=== PATIENT | male | born 1935 | race Caucasian/White ===

== ENCOUNTER 2023-04-23 08:33 | Emergency (ER) | payer MEDICARE, SELFPAY ==
[2023-04-23 08:40] VITALS: BP 177/72; PULSE 58; RESP 12; TEMP 36.3; O2SAT 97; BMI 25.0
--- NOTE | 2023-04-23 08:57 | ED_ITS ---
HPI - Syncope General Time Seen by Provider: 08:57 Date Seen: 04/23/23 Chief Complaint: Syncope/Fainted Stated Complaint: fall Time Seen by Provider: 04/23/23 08:48 Source: patient and family Mode of arrival: ambulatory Limitations: no limitations History of Present Illness HPI narrative: 88-year-old male with history of high blood pressure presents today for syncopal episode at [facility]. Patient stood up, by report looked pale and became unsteady, was eased down to sitting position. Did vomit but no abnormal movements and no confusion afterward. Patient denies chest pain or palpitations prior to this episode. Says he has been in his usual state of health. Says he has not eaten anything today which is not usual for him. Recently stopped lisinopril due to hypokalemia by his report, no other recent medication changes. Related Data Home Medications Medication Instructions Recorded Confirmed metoprolol tartrate 25 mg tablet 37.5 mg PO BID blood pressure 04/23/23 04/23/23 Allergies Allergy/AdvReac Type Severity Reaction Status Date / Time No Known Drug Allergies Allergy Verified 04/23/23 08:39 PFSH PFSH Social History Smoking Status: Never smoker How often do you have a drink containing alcohol: never AUDIT-C Alcohol total score: 0 Non-prescribed substance use: denies use Exam Narrative: Exam Narrative: General: Well-developed and well-nourished, no acute distress Head: Atraumatic and normocephalic Eyes: Pupils are equal reactive, extraocular motions intact, conjunctiva clear ENT: External nose and ears are normal, posterior pharynx without erythema or exudate Neck: No midline cervical tenderness, full spontaneous range of motion the neck, trachea midline, no adenopathy Heart: Regular rate and rhythm no murmurs or thrills Lungs: Clear to auscultation bilaterally without wheezes or crackles Abdomen: Soft, nontender, nondistended with active bowel sounds Musculoskeletal: No tenderness, deformity, or edema Neurologic: Awake, alert, and oriented x3, no gross focal neurologic deficits, cranial nerves intact as tested Psych: Mood and affect are appropriate Skin: No rashes Const: Vital Signs, click to edit/add: Vital Signs - 24 hr 04/23/23 08:40 04/23/23 09:32 Temperature 97.4 F L Pulse Rate 70 Pulse Rate [Pulse Oximeter] 58 L Respiratory Rate 12 14 Blood Pressure 147/72 H Blood Pressure [Ri ght Upper Arm] 177/72 H Pulse Oximetry 97 Oxygen Delivery Me thod Room Air Course Course ED Course: Patient seen examined, prior records reviewed. Patient presents today with syncopal episode. Patient was at [facility], got lightheaded. No fall or injury, no preceding chest pain or palpitations. Took metoprolol this morning, did not eat yet. EKG is reassuring, symptoms are most consistent with simple faint or near syncope, will evaluate for other underlying etiology. Patient will be given something in the emergency department and can be discharged if evaluation is reassuring. Reevaluation(s) Time of Reevaluation #1: 11:40 Reevaluation #1: Labs independently interpreted by me with normal CBC, negative troponin, normal BNP. Urinalysis does not demonstrate signs infection. Patient remains widely stable in the emergency department. Stable for discharge with outpatient follow-up. Vital Signs Vital signs: Initial Vital Signs Temperature 97.4 F L 04/23/23 08:40 Temperature Source Temporal Artery Scan 04/23/23 08:40 Pulse Rate 58 L 04/23/23 08:40 Pulse Rhythm Regular 04/23/23 08:40 Respiratory Rate 12 04/23/23 08:40 Blood Pressure 177/72 H 04/23/23 08:40 Blood Pressure Mean 107 H 04/23/23 08:40 Blood Pressure Position Sitting 04/23/23 08:40 Pulse Oximetry 97 04/23/23 08:40 Oxygen Delivery Method Room Air 04/23/23 08:40 Vital Signs Temperature 97.4 F L 04/23/23 08:40 Pulse Rate 58 L 04/23/23 08:40 Respiratory Rate 12 04/23/23 08:40 Blood Pressure 177/72 H 04/23/23 08:40 Pulse Oximetry 97 04/23/23 08:40 Oxygen Delivery Method Room Air 04/23/23 08:40 Temperature 97.4 F L 04/23/23 08:40 Pulse Rate 70 04/23/23 09:32 Respiratory Rate 14 04/23/23 09:32 Blood Pressure 147/72 H 04/23/23 09:32 Pulse Oximetry 97 04/23/23 08:40 Oxygen Delivery Method Room Air 04/23/23 08:40 MDM - Syncope Lab Data Labs: Lab Results 04/23/23 04/23/23 Range/Units 09:25 11:06 WBC 8.23 (4.50-11.00) K/uL RBC 4.78 (4.30-5.90) m/uL Hgb 14.8 (13.5-17.5) gm/dL Hct 45.6 (37.0-53.0) % MCV 95 (80-100) fL MCH 31 (26-34) pg MCHC 33 (32-36) gm/dL RDW Coeff of Sarah 13.0 (11.5-15.5) % Plt Count 175 (140-440) K/uL Neut % (Auto) 81.2 H (42.0-72.0) % Lymph % (Auto) 11.4 L (20-44) % [place] % (Auto) 6.4 (0.0-11.0) % Eos % (Auto) 0.6 (0.0-7.0) % Baso % (Auto) 0.2 (0.0-3.0) % Neut # (Auto) 6.70 (1.7-7.0) K/uL Lymph # (Auto) 0.90 (0.90-2.90) K/uL [place] # (Auto) 0.50 (0.00-0.90) K/UL Eos # (Auto) 0.05 (0.00-0.50) K/uL Baso # (Auto) 0.02 (0.00-0.30) K/uL Abs Immat Gran (auto) 0.02 (0.00-0.30) K/uL Imm/Tot Granulo (auto) 0.2 % Sodium 140 (135-149) mmol/L Potassium 4.9 (3.6-5.1) mmol/L Chloride 105 (96-114) mmol/L Carbon Dioxide 26 (20-32) mmol/L Anion Gap 9 (7-15) mEq/L BUN 29 (7-30) mg/dL Creatinine 1.2 (0.5-1.5) mg/dL Estimated Creat Clear 38.44 Estimated GFR 59 ml/min Glucose 124 H (60-115) mg/dL Calcium 9.8 (8.4-10.6) mg/dL Magnesium 2.1 (1.5-2.6) mg/dL Urine Color Yellow (Yellow) Urine Appearance Clear (Clear) Urine pH 5.5 (5.0-8.5) Ur Specific [place] 1.010 (1.000-1.030) Urine Protein Negative (Negative) Urine Glucose (UA) Negative (Negative) Urine Ketones Negative (Negative) Urine Blood Negative (Negative) Urine Nitrite Negative (Negative) Urine Bilirubin Negative (Negative) Urine Urobilinogen 0.2 (0.2-1.0) Ur Leukocyte Esterase Negative (Negative) Urine RBC 0-2 (0-2) Urine WBC 0-2 (0-5) Ur Squamous Epith Cells None (None-Few) Urine Bacteria None (None) ECG Data Attestation: I personally reviewed and interpreted this ECG as follows: ECG interpretation date: 04/23/23 ECG interpretation time: 09:00 Prior ECG tracings: not available for review Interpretation: Independently interpreted by me with sinus rhythm rate 57, no acute ST elevations or depressions, normal intervals, normal axis, QTC 428, DE 154. Discharge Plan Discharge Clinical Impression: Syncope Condition: Stable Instructions: Syncope (ED) Additional Instructions: Resume normal diet today. Light activity today is okay, may return to regular activity tomorrow Activity Level: No Restrictions Prescriptions: No Action metoprolol tartrate 25 mg tablet 37.5 mg PO BID Stand Alone Forms: [employer] Info Instructions
[2023-04-23 09:32] VITALS: BP 147/72; PULSE 70; RESP 14
[2023-04-23 09:38] LABS: Basophils Absolute Auto 0.02 K/uL (0.00-0.30); Basophils Percent Auto 0.2 % (0.0-3.0); Eosinophils Absolute Auto 0.05 K/uL (0.00-0.50); Eosinophils Percent Auto 0.6 % (0.0-7.0); Hematocrit 45.6 % (37.0-53.0); Hemoglobin* 14.8 gm/dL (13.5-17.5); Immature Granulocytes Abs Auto 0.02 K/uL (0.00-0.30); Immature Granulocytes Pct Auto 0.2 %; Lymphocytes Percent Auto 11.4 % (20-44); Mean Corpuscular HGB Conc 33 gm/dL (32-36); Mean Corpuscular Hemoglobin 31 pg (26-34); Mean Corpuscular Volume 95 fL (80-100); Monocytes Percent Auto 6.4 % (0.0-11.0); Neutrophils Percent Auto 81.2 % (42.0-72.0); Platelet Count* 175 K/uL (140-440); Red Blood Count 4.78 m/uL (4.30-5.90); White Blood Count* 8.23 K/uL (4.50-11.00)
[2023-04-23 09:39] LABS: Slide Review Reflex No
[2023-04-23 09:50] LABS: Chloride* 105 mmol/L (96-114); Potassium* 4.9 mmol/L (3.6-5.1); Sodium* 140 mmol/L (135-149)
[2023-04-23 09:52] LABS: Creatinine* 1.2 mg/dL (0.5-1.5); Est. Creatinine Clearance* 38.44; Estimated Glomerular Filt Rate 59 ml/min
[2023-04-23 09:53] LABS: Anion Gap 9 mEq/L (7-15); Blood Urea Nitrogen* 29 mg/dL (7-30); Calcium* 9.8 mg/dL (8.4-10.6); Carbon Dioxide* 26 mmol/L (20-32); Glucose* 124 mg/dL (60-115); Magnesium* 2.1 mg/dL (1.5-2.6)
[2023-04-23 10:02] VITALS: BP 156/97; PULSE 56; RESP 14; O2SAT 94
[2023-04-23 10:32] VITALS: BP 169/86; PULSE 68; RESP 14; O2SAT 95
[2023-04-23 11:02] VITALS: BP 161/91; PULSE 76; RESP 16; O2SAT 97
[2023-04-23 11:22] LABS: Appearance Urine Clear (Clear); Bilirubin Urine Negative (Negative); Blood Urine Negative (Negative); Color Urine Yellow (Yellow); Glucose Urine Negative (Negative); Ketones Urine Negative (Negative); Leukocyte Esterase Urine Negative (Negative); Nitrite Urine Negative (Negative); Protein Urine Negative (Negative); Urobilinogen Urine 0.2 (0.2-1.0); pH Urine 5.5 (5.0-8.5)
[2023-04-23 11:38] LABS: RBC Urine 0-2 (0-2); WBC Urine 0-2 (0-5)
== END 2023-04-23 11:57 | disposition home or self-care (01) ==
LOC: ED 10:00
PROVIDERS: Emergency Provider Family Medicine; PCP Family Medicine
DX: R55 Syncope and collapse (principal)
CPT/HCPCS: 36415; 80048; 81001; 83735; 84484; 85025; 93005; 99284

== ENCOUNTER 2024-02-02 08:31 | Outpatient (CLI) | payer MEDICARE, SELFPAY | END 2024-02-02 08:32 | disposition home or self-care (01) | PROVIDERS: PCP Family Medicine; Visit Provider Internal Medicine | DX: I10 Essential (primary) hypertension (principal); Z13.220 Encounter for screening for lipoid disorders; Z12.5 Encounter for screening for malignant neoplasm of prostate | CPT/HCPCS: 80053; 80061; G0103 ==

== ENCOUNTER 2025-03-29 08:46 | Outpatient (CLI) | payer MEDICARE, SELFPAY | END 2025-03-29 08:47 | disposition home or self-care (01) | PROVIDERS: PCP Internal Medicine; Visit Provider Internal Medicine | DX: I10 Essential (primary) hypertension (principal); N40.0 Benign prostatic hyperplasia without lower urinary tract symptoms; Z12.5 Encounter for screening for malignant neoplasm of prostate | CPT/HCPCS: 80053; 80061; G0103 ==